=== PATIENT | female | born 1970 | race Caucasian/White ===

== ENCOUNTER 2018-02-24 15:34 | Emergency (ER) | payer OTHER ==
[~2018-02-24] VITALS: Ht 160 cm; Wt 79.7 kg
[~2018-02-24 15:34] MED LIST: ADVAIR 250/501 DISK IH; ALDACTONE25 MG PO; AMBIEN10 MG PO; BETAMETHASONE D15 GM TP; BRINTELLIX10 MG PO; CATAPRES0.1 MG PO; CLARITIN,ALAVAR10 MG PO; CYCLOBENZAPRINE10 MG PO; FLAGYL500 MG PO; FLONASE ALLERG9.9 ML BOTH NARES; FLONASE16 G1 BOTH NARES; FUROSEMIDE20 MG PO; K-TAB10 MEQ PO; KLONOPIN1 MG PO; LATUDA20 MG PO; LISINOPRIL20 MG PO; LORCET 5-325 M1 EACH PO; MOBIC15 MG PO; MOBIC7.5 MG PO; NEURONTIN300 MG PO; SEROQUEL100 MG PO; SINGULAIR10 MG PO; TESSALON200 MG PO; VENTOLIN HFA18 GM IH; WELLBUTRIN SR150 MG PO; ZANAFLEX4 MG PO; ZOCOR20 MG PO; ZOFRAN4 MG PO; ZOLOFT100 MG PO; ZYRTEC10 M3 PO
[2018-02-24] MEDS ORDERED: NORCO 5/3251 TABLET PO (17:20)
[2018-02-24 17:22] VITALS: BP 130/71
== END 2018-02-24 17:22 | disposition home or self-care (01) ==
LOC: EME 15:34
DX: S92.911A Unspecified fracture of right toe(s), initial encounter for closed fracture (principal); W22.8XXA Striking against or struck by other objects, initial encounter; Y92.009 Unspecified place in unspecified non-institutional (private) residence as the place of occurrence of the external cause; F17.200 Nicotine dependence, unspecified, uncomplicated; Z88.2 Allergy status to sulfonamides
CPT/HCPCS: 73630; 99281; 99283